=== PATIENT | female | born 1945 | race Caucasian/White ===

== ENCOUNTER 2024-08-02 22:22 | Emergency (ER) | payer OTHER ==
[2024-08-02 22:30] VITALS: BP 141/90; PULSE 86; RESP 18; TEMP 97.3; BMI 31.5
== END 2024-08-02 23:06 | disposition home or self-care (01) ==
LOC: FER 22:22
DX: S60.443A External constriction of left middle finger, initial encounter (principal); W49.04XA Ring or other jewelry causing external constriction, initial encounter
CPT/HCPCS: 99282-25